=== PATIENT | male | born 1995 | race Caucasian/White ===

== ENCOUNTER 2019-11-17 10:36 | Emergency (ER) | payer OTHER ==
[~2019-11-17] VITALS: Ht 182.9 cm; Wt 108.9 kg
[~2019-11-17 10:36] MED LIST: DOXYCYCLINE 10100 MG PO; NOHOMEMEDICATIONS
[2019-11-17 10:49] VITALS: BP 138/69
[2019-11-17 10:56] LABS: URINE BILIRUBIN NEGATIVE (Negative); URINE BLOOD NEGATIVE (Negative); URINE CLARITY CLEAR; URINE COLOR YELLOW; URINE GLUCOSE-RANDOM NEGATIVE (Negative); URINE KETONES NEGATIVE (Negative); URINE LEUKOCYTES-REFLEX TRACE (Negative); URINE NITRITE-REFLEX NEGATIVE (Negative); URINE PROTEIN NEGATIVE (Negative); URINE SPECIFIC GRAVITY <= 1.005 (1.005-1.030); URINE UROBILINOGEN 0.2 E.U./dl (0.2-1.0)
[2019-11-17 11:05] LABS: BACTERIA-REFLEX 1-9 Few /HPF (None Seen); SQUAMOUS 0-3 Few /LPF (0-3); URINE RBC 0-2 Rare /HPF (0-2); URINE WBC-REFLEX 6-15 Few /HPF (0-5)
[2019-11-17 11:06] LABS: CASTS None Seen /LPF (None Seen); CRYSTALS None Seen /LPF (None Seen)
== END 2019-11-17 11:24 | disposition home or self-care (01) ==
LOC: M.ERS 10:36
PROVIDERS: Physician Assistant
DX: R30.0 Dysuria (principal)

== ENCOUNTER 2020-06-12 19:21 | Emergency (ER) | payer OTHER ==
[~2020-06-12] VITALS: Ht 188 cm; Wt 104.8 kg
[2020-06-12 20:11] LABS: ABSOLUTE BASOPHILS 0.1 thou/uL (0.0-0.2); ABSOLUTE EOSINOPHILS 0.1 thou/uL (0.0-0.7); ABSOLUTE LYMPHOCYTES 3.3 thou/uL (0.8-5.3); ABSOLUTE MONOCYTES 1.2 thou/uL (0.0-1.2); ABSOLUTE NEUTROPHILS 8.3 thou/uL (1.6-8.1); BASOPHILS 0.6 %; EOSINOPHILS 0.5 %; HEMATOCRIT 42.4 % (42.0-52.0); HEMOGLOBIN 14.7 gm/dL (14.0-18.0); LYMPHOCYTES 25.3 %; MCH 31.7 pg (26.0-34.0); MCHC 34.8 g/dL (28.0-37.0); MCV 91.2 fL (80.0-100.0); MONOCYTES 9.5 %; MPV 8.3 fl. (7.2-11.1); NUCLEATED RBCS 0 /100WBC; PLATELET COUNT* 223 thou/uL (150-400); POLYS 64.1 %; RBC 4.64 mil/uL (4.50-6.00); RDW-CV 12.7 % (10.5-14.5)
[2020-06-12 20:18] LABS: CALCIUM 8.5 mg/dL (8.5-10.1); CREATININE 1.3 mg/dL (0.6-1.3); POTASSIUM 3.4 mmol/L (3.5-5.1)
[2020-06-12 20:23] LABS: ALBUMIN 3.8 g/dL (3.4-5.0); TOTAL BILIRUBIN 0.4 mg/dL (<0.1-1.0); TOTAL PROTEIN 7.3 g/dL (6.4-8.2)
[2020-06-12] MEDS ORDERED: AUGMENTIN 500-1 EACH PO (20:52)
[2020-06-12] MEDS ORDERED: NAPROSYN500 MG PO (20:52)
[2020-06-12] MEDS ORDERED: ULTRAM 50MG TAB50 MG PO (20:52)
[2020-06-12 21:18] VITALS: BP 115/65
== END 2020-06-12 21:19 | disposition home or self-care (01) ==
LOC: M.ERS 19:21
PROVIDERS: Nurse Practitioner Family
DX: L02.31 Cutaneous abscess of buttock (principal); T38.0X5A Adverse effect of glucocorticoids and synthetic analogues, initial encounter; L03.317 Cellulitis of buttock; Y92.89 Other specified places as the place of occurrence of the external cause